=== PATIENT | male | born 1940 | race Caucasian/White ===

== ENCOUNTER 2017-10-25 07:43 | Inpatient (IN) | payer MEDICARE ==
[~2017-10-25] VITALS: Ht 167.6 cm; Wt 102.6 kg
[~2017-10-25 07:43] MED LIST: CLOP75TA52 PO; LORA10TA62 PO; METF500T4 PO; PROP40TA PO; SIMV20TA3 PO
[2017-10-25] MEDS ORDERED: PROMETHAZINE 25 MG/ML, 1ML ONE (07:52)
[2017-10-25] MEDS ORDERED: ONDANSETRON 2MG/ML, 2ML ONE (07:52)
[2017-10-25] MEDS ORDERED: PROMETHAZINE 25 MG/ML, 1ML IM ONE (08:00)
[2017-10-25] MEDS ORDERED: ONDANSETRON 2MG/ML, 2ML IVPush ONE (08:00)
[2017-10-25] MEDS ORDERED: ACETAMINOPHEN 500 MG TABLET ONE (09:03)
[2017-10-25] MEDS ORDERED: ACETAMINOPHEN 500 MG TABLET PO ONE (09:30)
[2017-10-25] MEDS ORDERED: ASPIRIN 325 MG TABLET EC ONE (10:02)
[2017-10-25] MEDS ORDERED: FLUT9.9S NS (10:08)
[2017-10-25] MEDS ORDERED: DEXTROSE 4 GM TAB.CHEW PO PRN (11:00)
[2017-10-25] MEDS ORDERED: ONDANSETRON 2MG/ML, 2ML IVPush PRN (11:00)
[2017-10-25] MEDS ORDERED: ASPIRIN 325 MG TABLET EC PO ONE (11:00)
[2017-10-25] MEDS ORDERED: DEXTROSE 50%, 50ML SYRINGE IVPush PRN (11:00)
[2017-10-25] MEDS ORDERED: GLUCAGON 1 MG IM PRN (11:00)
[2017-10-25] MEDS ORDERED: LABETALOL 5MG/ML, 20ML IVPush PRN (11:00)
[2017-10-25 11:33] VITALS: BP 132/84
[2017-10-25] MEDS: INSULIN LISPRO 100 UNITS/ML, PEN SQ-INSULIN SCH ×3 (12:00→20:39)
[2017-10-25] MEDS: ASPIRIN 81 MG TABLET CHEW PO/NG SCH (12:03)
[2017-10-25 13:46] LABS: HEMOGLOBIN A1C 6.5 % (4.2-6.3)
[2017-10-25 14:42] VITALS: BP 123/78
[2017-10-25] MEDS: SODIUM CHLORIDE 0.9% 1,000 ML IV SCH (14:45)
[2017-10-25] MEDS: ACETAMINOPHEN 325 MG TABLET PO PRN ×2 (14:45→19:22)
[2017-10-25] MEDS: HEPARIN 5,000 UNITS/ML, 1ML SQ SCH ×2 (14:45→23:09)
[2017-10-25 20:12] VITALS: BP 122/74
[2017-10-25] MEDS: SODIUM CHLORIDE FLUSH 10ML SYR IVF SCH (20:39)
[2017-10-25] MEDS: ATORVASTATIN 80 MG TABLET PO SCH (20:39)
[2017-10-26] MEDS: SODIUM CHLORIDE 0.9% 1,000 ML IV SCH ×3 (00:40→20:04)
[2017-10-26 00:42] VITALS: BP 123/75
[2017-10-26] MEDS: ACETAMINOPHEN 325 MG TABLET PO PRN ×2 (04:17→19:44)
[2017-10-26 04:20] VITALS: BP 116/72
[2017-10-26 05:25] LABS: BASOPHILS # (AUTO) 0.01 x10^3/uL (0-0.1); BASOPHILS % (AUTO) 0 % (0-1); EOSINOPHILS # (AUTO) 0.05 x10^3/uL (0-0.4); EOSINOPHILS % (AUTO) 1 % (1-7); LYMPHOCYTES # (AUTO) 1.93 x10^3/uL (1-3.4); LYMPHOCYTES % (AUTO) 22 % (22-44); MD NO; MEAN CORPUSCULAR HEMOGLOBIN 31.2 pg (27.5-34.5); MEAN CORPUSCULAR HGB CONC 33.6 g/dL (33.2-36.2); MEAN CORPUSCULAR VOLUME 92.9 fL (81-97); MONOCYTES # (AUTO) 0.55 x10^3/uL (0.2-0.8); MONOCYTES % (AUTO) 6 % (2-9); NEUTROPHILS # (AUTO) 6.32 x10^3/uL (1.8-6.8); NEUTROPHILS % (AUTO) 71 % (42-75); PLATELET COUNT 199 x10^3/uL (130-400); RED BLOOD COUNT 4.76 x10^6/uL (4.38-5.82); RED CELL DISTRIBUTION WIDTH 14.7 % (9.4-14.8)
[2017-10-26 05:30] LABS: ALBUMIN 2.8 g/dL (3.4-5.0); ANION GAP 7 mmol/L (5-15); CALCIUM 8.5 mg/dL (8.5-10.1); CHLORIDE 110 mmol/L (98-107)
[2017-10-26 05:35] LABS: ALANINE AMINOTRANSFERASE 19 U/L (12-78); ALKALINE PHOSPHATASE 56 U/L (45-117); BILIRUBIN,TOTAL 0.4 mg/dL (0.2-1.0); CHOL/HDL RATIO 2.7; CHOLESTEROL, TOTAL 125 mg/dL (140-239); CREATININE 0.72 mg/dL (0.7-1.3); HDL CHOLESTEROL (DIRECT) 47 mg/dL (40-60); TOTAL PROTEIN 6.6 g/dL (6.4-8.2); TRIGLYCERIDES 109 mg/dL (50-200); VLDL CHOLESTEROL 22 mg/dL (0-25)
[2017-10-26 05:36] LABS: HDL CHOL % 38 % (26-37); LDL CHOLESTEROL,CALCULATED 56 mg/dL (54-169); LDL/HDL RATIO 1.2 (0.5-3.0)
[2017-10-26] MEDS: INSULIN LISPRO 100 UNITS/ML, PEN SQ-INSULIN SCH ×4 (07:00→20:05)
[2017-10-26 07:54] VITALS: BP 122/75
[2017-10-26] MEDS: SODIUM CHLORIDE FLUSH 10ML SYR IVF SCH ×2 (08:04→20:04)
[2017-10-26] MEDS: HEPARIN 5,000 UNITS/ML, 1ML SQ SCH ×2 (08:04→16:17)
[2017-10-26] MEDS: ASPIRIN 81 MG TABLET CHEW PO/NG SCH (08:04)
[2017-10-26 14:14] VITALS: BP 126/79
[2017-10-26 19:22] VITALS: BP 158/75
[2017-10-26] MEDS: ATORVASTATIN 80 MG TABLET PO SCH (19:44)
[2017-10-27] MEDS: HEPARIN 5,000 UNITS/ML, 1ML SQ SCH (00:26)
[2017-10-27 01:40] VITALS: BP 151/85
[2017-10-27 08:00] VITALS: BP 133/71
[2017-10-27] MEDS: SODIUM CHLORIDE FLUSH 10ML SYR IVF SCH ×2 (08:48→20:13)
[2017-10-27] MEDS: ASPIRIN 81 MG TABLET CHEW PO/NG SCH (08:48)
[2017-10-27] MEDS: ENOXAPARIN 40 MG/0.4 ML SQ SCH (08:48)
[2017-10-27] MEDS: LISINOPRIL 5 MG TABLET PO SCH (08:48)
[2017-10-27] MEDS: ACETAMINOPHEN 325 MG TABLET PO PRN ×2 (08:48→15:44)
[2017-10-27] MEDS: INSULIN LISPRO 100 UNITS/ML, PEN SQ-INSULIN SCH ×4 (08:48→19:59)
[2017-10-27 13:46] VITALS: BP 133/82
[2017-10-27] MEDS ORDERED: ASPI-515 PO/NG (14:57)
[2017-10-27] MEDS ORDERED: ATOR-2 PO (14:57)
[2017-10-27] MEDS ORDERED: LISI5TAB7 PO (14:57)
[2017-10-27 20:12] VITALS: BP 139/76
[2017-10-27] MEDS ORDERED: ATORVASTATIN 80 MG TABLET PO SCH (21:00)
[2017-10-28 01:19] VITALS: BP 145/77
[2017-10-28 01:41] VITALS: BP 108/69
[2017-10-28] MEDS: ACETAMINOPHEN 325 MG TABLET PO PRN (04:24)
[2017-10-28] MEDS: INSULIN LISPRO 100 UNITS/ML, PEN SQ-INSULIN SCH ×2 (07:00→11:00)
[2017-10-28 07:03] VITALS: BP 136/79
[2017-10-28] MEDS ORDERED: CLOP75TA PO (08:17)
[2017-10-28] MEDS ORDERED: ASPI-621 PO (08:17)
[2017-10-28] MEDS: ENOXAPARIN 40 MG/0.4 ML SQ SCH (08:21)
[2017-10-28] MEDS: SODIUM CHLORIDE FLUSH 10ML SYR IVF SCH (08:21)
[2017-10-28] MEDS: LISINOPRIL 5 MG TABLET PO SCH (08:22)
[2017-10-28] MEDS ORDERED: ASPIRIN 81 MG TABLET EC PO SCH (08:30)
[2017-10-28] MEDS ORDERED: CLOPIDOGREL 75 MG TABLET PO SCH (09:00)
[2017-10-28 12:05] VITALS: BP 149/89
== END 2017-10-28 13:25 | DRG 64 ==
LOC: ED 09:30 → EEVIPCON 09:31 → EDIP 09:31 → ED 09:55 → 4EST 10:18
PROVIDERS: ADMIT Internal Medicine Pulmonary Disease; ATTEND Internal Medicine Pulmonary Disease
DX: I63.542 Cerebral infarction due to unspecified occlusion or stenosis of left cerebellar artery (principal); E43 Unspecified severe protein-calorie malnutrition; E11.9 Type 2 diabetes mellitus without complications; I10 Essential (primary) hypertension; E78.5 Hyperlipidemia, unspecified; Z79.02 Long term (current) use of antithrombotics/antiplatelets; Z79.82 Long term (current) use of aspirin; Z79.899 Other long term (current) drug therapy; Z82.49 Family history of ischemic heart disease and other diseases of the circulatory system
CPT/HCPCS: 36415; 70551; 80053; 80061; 82962; 83036; 85025; 93005; 93306; 93880; 96372; 96374; J1644; J1650; J2405; J2550; 92523-GN; J1815; J7030

== ENCOUNTER 2020-04-22 14:12 | Emergency (ER) | payer MEDICARE ==
[~2020-04-22] VITALS: Ht 167.6 cm; Wt 97.1 kg
[~2020-04-22 14:12] MED LIST changes: +ASPI-515 PO/NG; +ASPI81TA45 PO; +ATOR-2 PO; +CLOP75TA PO; +FLUT9.9S NS; +LISI5TAB7 PO; +METF500T17 PO; -METF500T4 PO; +SIMV20TA19 PO; -SIMV20TA3 PO
[2020-04-22] MEDS ORDERED: APIX5TAB PO (14:36)
--- NOTE | 2020-04-22 14:39 | NUR ---
MECHANICAL GLF ON TUESDAY. "I THINK THAT I TRIPPED ON THE CAT, IM NOT SURE", NOW WITH INTERMITTENT PERIODS OF NAUSEA STARTING AT 0100 TODAY. NEURO EXAM UNREMARKABLE. 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 PT IS HERE BECAUSE HE WANTS TO MAKE SURE HE DOES NOT HAVE A BRAIN BLEED. ROLANDA ZARATE AT BEDSIDE
[2020-04-22 15:03] LABS: BASOPHILS % (AUTO) 1 % (0-1); EOSINOPHILS % (AUTO) 3 % (1-7); LYMPHOCYTES % (AUTO) 30 % (22-44); MEAN CORPUSCULAR HEMOGLOBIN 28.1 pg (27.5-34.5); MEAN CORPUSCULAR HGB CONC 32.4 g/dL (33.2-36.2); MEAN PLATELET VOLUME 8.9 fL (7.4-10.4); MONOCYTES % (AUTO) 9 % (2-9); NEUTROPHILS % (AUTO) 58 % (42-75); PLATELET COUNT 269 x10^3/uL (130-400); RED BLOOD COUNT 4.57 x10^6/uL (4.38-5.82)
[2020-04-22 15:07] LABS: MD NO
--- NOTE | 2020-04-22 15:12 | NUR ---
VSS. APPEARS IN NO ACUTE DISTERSS.
[2020-04-22 15:15] LABS: ALANINE AMINOTRANSFERASE 28 U/L (12-78); ALBUMIN 3.2 g/dL (3.4-5.0); CALCIUM 8.6 mg/dL (8.5-10.1); CREATININE 0.96 mg/dL (0.7-1.3)
[2020-04-22 15:19] LABS: ALKALINE PHOSPHATASE 101 U/L (45-117); BILIRUBIN,TOTAL 0.3 mg/dL (0.2-1.0); TOTAL PROTEIN 7.5 g/dL (6.4-8.2); TROPONIN I < 0.015 ng/mL (0.000-0.045)
--- NOTE | 2020-04-22 15:20 | NUR ---
DAUGHTERS PHONE NUMBER #
[2020-04-22 15:24] LABS: ANION GAP 8 mmol/L (5-15); CHLORIDE 109 mmol/L (98-107)
--- NOTE | 2020-04-22 15:44 | NUR ---
daughter wants pt to have covid test but pt does not want one
[2020-04-22 15:45] VITALS: BP 99/53
[2020-04-22 15:54] LABS: MICROSCOPIC AUTO
--- NOTE | 2020-04-22 16:10 | NUR ---
Report from deni galdamez with assessment- neurological exam unremarkable
== END 2020-04-22 16:39 | disposition home or self-care (01) ==
LOC: ED 16:33
DX: S06.0X0A Concussion without loss of consciousness, initial encounter (principal); N39.0 Urinary tract infection, site not specified; R94.31 Abnormal electrocardiogram [ECG] [EKG]; W01.0XXA Fall on same level from slipping, tripping and stumbling without subsequent striking against object, initial encounter; Y93.89 Activity, other specified; Y92.009 Unspecified place in unspecified non-institutional (private) residence as the place of occurrence of the external cause; Y99.8 Other external cause status
CPT/HCPCS: 36415; 70450; 80053; 81001; 84484; 85025; 87086; 93005; 99285